=== PATIENT | male | born 1960 | race Two or more races ===

== ENCOUNTER → 2019-11-26 | Outpatient (REF) | payer OTHER ==
[2019-11-26 12:50] LABS: C REACTIVE PROTEIN QUANTITATIV < 0.30 MG/DL (0.00-0.30); RHEUMATOID FACTOR QUANT < 10.0 IU/ML (<15.0)
== END ==
LOC: M SFHCRHEU 09:38
PROVIDERS: ATTEND Internal Medicine
DX: M25.50 Pain in unspecified joint (principal)
CPT/HCPCS: 36415; 85652; 86140; 86200; 86431; G0463